=== PATIENT | female | born 1960 | race Caucasian/White ===

== ENCOUNTER 2018-05-12 13:49 | Emergency (ER) | payer SELFPAY ==
[~2018-05-12] VITALS: Ht 165.1 cm; Wt 61.2 kg
[2018-05-12 14:46] LABS: Basophils # (auto) 0.1 uL; Basophils % (auto) 1.6 % (0.0-2.0); Eosinophils # (auto) 0.1 uL; Hemoglobin 8.8 g/dL (12.2-16.2); Lymphocytes # (auto) 1.5 uL; Lymphocytes % (auto) 34.8 % (10.0-50.0); Monocytes # (auto) 0.3 uL; Monocytes % (auto) 7.5 % (0.0-12.0); Neutrophils # (auto) 2.3 uL; White Blood Cell 4.2 10^3/uL (4.4-10.8)
[2018-05-12 14:48] LABS: Hematocrit 28.8 % (36.0-46.0); Mean Corpuscular Hemoglobin 22.5 pg (28.0-32.0); Mean Corpuscular Hgb Conc. 30.4 g/dL (32.0-36.0); Neutrophils % (auto) 54.1 % (37.0-80.0); Nucleated Red Blood Cells % 0.2 %; Platelet Count (auto) 385 10^3/uL (140-450); Red Blood Cells 3.89 10^6/uL (4.0-5.20); Red Cell Distribution Width 18.9 % (11.8-14.3)
[2018-05-12 15:03] LABS: Urine Bacteria NONE SEEN /hpf (None Seen); Urine Blood Negative /uL (Negative); Urine Specific Gravity 1.016 (1.001-1.035); Urine WBC 1 /hpf (0 - 5)
[2018-05-12 15:04] LABS: Albumin 3.7 g/dL (3.4-5.0); BUN/Creatinine Ratio 15.5; Bilirubin, Total 0.4 mg/dL (0.2-1.0); Calcium 8.7 mg/dL (8.5-10.1); Potassium 3.9 mmol/L (3.5-5.1); Total Protein 7.9 g/dL (6.4-8.2)
[2018-05-12 16:52] VITALS: BP 158/99
== END 2018-05-12 16:54 | disposition home or self-care (01) ==
LOC: ER 13:49
DX: D64.9 Anemia, unspecified (principal); F17.210 Nicotine dependence, cigarettes, uncomplicated; F12.10 Cannabis abuse, uncomplicated; Z90.49 Acquired absence of other specified parts of digestive tract
CPT/HCPCS: 36415; 74176; 80053; 81001; 85025